=== PATIENT | female | born 1930 | race African-American/Black ===

== ENCOUNTER 2018-01-01 12:47 | Outpatient (CLI) | payer MEDICARE, MEDICAID | END 2018-01-01 12:48 | disposition home or self-care (01) | LOC: BICRAD 12:47 | PROVIDERS: ATTEND Internal Medicine Medical Oncology | DX: C50.919 Malignant neoplasm of unspecified site of unspecified female breast (principal) | CPT/HCPCS: 71046 ==

== ENCOUNTER 2018-01-21 08:40 | Outpatient (CLI) | payer MEDICARE, MEDICAID ==
--- NOTE | 2018-01-21 11:30 | CT ---
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 Left upper quadrant breast cancer. Abnormal weight loss. TECHNIQUE: Abdomen and pelvic CT are performed with IV and oral contrast. Coronal reformatted images are submitt ed for interpretation. FINDINGS: ABDOMEN CT: Linear opacities in the lung bases likely represent areas of scarring and atelectasis. Normal heart size. No pericardial effusion. There are coronary artery calcifications. There is athero sclerosis of the aorta. Symmetric attenuation of psoas muscles. No gastrohepatic, retrocrural, or periportal lymphadenopathy. Gallbladder is unremarkable. Intra and extrahepatic portal vein is patent. Liver, spleen, pancreas, and right/left adrenal glands have appropriate enhancement. Symmetric enhancement of the kidneys. Bilaterally, no obstructive uropathy. Nonobstructing punctate c alcification of left renal pelvis. Right extrarenal pelvis is noted. No mesenteric mass, lymphadenopathy, free air, or free fluid. Gastric mucosa, duodenum, and multiple normal caliber small bowel loops are noted. Ileocecal junction is normal. Normal caliber appendix. Scattered fecal material and contrast in nondistended, nondilate d colon. PELVIC CT: Urinary bladder is unremarkable. No pelvic mass, lymphadenopathy, free air, or free fluid. There are no lytic or blastic lesions in the osseous structures. Vacuum disc phenomenon at multiple l evels is noted. IMPRESSION: No acute abnormality in abdomen or pelvis. POS: [facility]
[2018-01-21] MEDS ORDERED: Iopamidol 370 76% 100 ML VIAL ONE (13:23)
== END 2018-01-21 08:41 | disposition home or self-care (01) ==
LOC: CT 08:40
PROVIDERS: ATTEND Internal Medicine Medical Oncology
DX: C50.412 Malignant neoplasm of upper-outer quadrant of left female breast (principal); R63.4 Abnormal weight loss
CPT/HCPCS: 74177; 82565

== ENCOUNTER 2018-04-22 22:53 | Emergency (ER) | payer MEDICARE, MEDICAID ==
[2018-04-22] MEDS ORDERED: Meclizine HCl 25 MG TAB ONE (23:33)
[2018-04-23 00:03] LABS: #Eosinphils 0.1 thou/uL (0.0-0.7); #Lymphocytes 1.6 thou/uL (1.20-3.40); #Monocytes 0.6 thou/uL (0.11-0.59); #Neutrophils 6.2 thou/uL (1.40-6.50); %Basophils 0.5 % (0.0-1.0); %Eosinophils 1.6 % (0.0-10.0); %Lymphocytes 18.3 % (21.0-51.0); %Monocytes 6.7 % (0.0-10.0); Hemoglobin 11.5 g/dL (12.0-16.0); Mean Corpuscular HGB CONC 31.2 g/dL (32.0-36.0); Mean Corpuscular Hemoglobin 25.3 pg (27.0-31.0); Mean Corpuscular Volume 81.2 fl (81.0-99.0); Mean Platelet Volume 8.9 fL (7.4-10.4); Platelet Count 193 thou/uL (130-400); RBC Distribution Width 12.3 % (11.5-14.5); Red Blood Cell (RBC) Count 4.52 mill/uL (4.20-5.40); White Blood Cell (WBC) Count 8.5 thou/uL (4.8-10.8)
[2018-04-23 00:06] LABS: ALT (SGPT) 32 U/L (8-55); AST (SGOT) 26 U/L (5-34); Alkaline Phosphatase 76 U/L (40-150); Anion Gap 12 mmol/L (10-20); BUN (Urea Nitrogen) 26 mg/dL (9.8-20.1); Bilirubin, Total 0.4 mg/dL (0.2-1.2); Calc. Creatinine Clearance 0 mL/min (70-130); Calcium 10.3 mg/dL (7.8-10.44); Carbon Dioxide 27 mmol/L (23-31); Chloride 106 mmol/L (98-107); Estimated GFR-MDRD 46; Globulin 3.9 g/dL (2.4-3.5); Glucose 155 mg/dL (83-110); Potassium 4.2 mmol/L (3.5-5.1); Protein, Total 7.9 g/dL (6.0-8.3); Sodium 141 mmol/L (136-145)
== END 2018-04-23 01:15 | disposition home or self-care (01) ==
LOC: ERS 22:53
DX: R42 Dizziness and giddiness (principal); E78.5 Hyperlipidemia, unspecified; I10 Essential (primary) hypertension; Z79.899 Other long term (current) drug therapy
CPT/HCPCS: 36415; 80053; 85025; 93005

== ENCOUNTER 2019-11-15 23:13 | Observation (INO) | payer MEDICARE, MEDICAID ==
[2019-11-15 23:47] LABS: #Basophils 0.1 thou/uL (0.0-0.2); #Eosinphils 0.2 thou/uL (0.0-0.7); #Lymphocytes 2.7 thou/uL (1.20-3.40); #Monocytes 0.7 thou/uL (0.11-0.59); #Neutrophils 5.7 thou/uL (1.40-6.50); %Eosinophils 1.6 % (0.0-10.0); %Lymphocytes 29.2 % (21.0-51.0); %Monocytes 7.1 % (0.0-10.0); Hemoglobin 11.9 g/dL (12.0-16.0); Mean Corpuscular HGB CONC 32.8 g/dL (32.0-36.0); Mean Corpuscular Hemoglobin 26.7 pg (27.0-31.0); Mean Corpuscular Volume 81.4 fL (78.0-98.0); Platelet Count 197 thou/uL (130-400); RBC Distribution Width 12.7 % (11.5-14.5); Red Blood Cell (RBC) Count 4.47 mill/uL (4.20-5.40); White Blood Cell (WBC) Count 9.3 thou/uL (4.8-10.8)
--- NOTE | 2019-11-15 23:47 | RAD ---
EXAM: CHEST ONE VIEW HISTORY: Dizziness. Near-syncope. COMPARISON: None FINDINGS: A CT injectable right subclavian Mediport catheter is noted place with tip overlying the distal SVC. There is mild narrowing of the catheter at the level of the anterior first rib and clavicle. The cardiac silhouette and pulmonary vasculature are within normal limits. The lungs are clear. Postsurgi chace changes left shoulder are seen. Degenerative changes are noted in the spine. Vascular calcifications are seen in the thoracic aorta. IMPRESSION: No acute cardiopulmonary process.
[2019-11-16 00:07] LABS: ALT (SGPT) 25 U/L (8-55); AST (SGOT) 26 U/L (5-34); Albumin 4.2 g/dL (3.4-4.8); Alkaline Phosphatase 75 U/L (40-110); Anion Gap 13 mmol/L (10-20); BUN (Urea Nitrogen) 20 mg/dL (9.8-20.1); Bilirubin, Total 0.3 mg/dL (0.2-1.2); Calc. Creatinine Clearance 0 mL/min (70-130); Calcium 9.7 mg/dL (7.8-10.44); Carbon Dioxide 27 mmol/L (23-31); Chloride 107 mmol/L (98-107); Estimated GFR-MDRD 42; Globulin 3.3 g/dL (2.4-3.5); Glucose 135 mg/dL (83-110); Potassium 4.2 mmol/L (3.5-5.1); Protein, Total 7.5 g/dL (6.0-8.3); Sodium 143 mmol/L (136-145)
[2019-11-16 01:23] LABS: Bilirubin Negative (Negative); Blood, Urine Negative (Negative); Clarity Clear (Clear); Glucose, Urine (Dipstick) Normal (Negative); Leukocyte Negative Leu/uL (Negative); Nitrite Negative (Negative); Protein, Urine (Dipstick) Negative (Neg-Trace); Urobilinogen Normal mg/dL (Less than 2)
[2019-11-16] MEDS ORDERED: Ondansetron ODT 4 MG TAB PO PRN (02:27)
[2019-11-16 02:55] LABS: Troponin I 0.052 ng/mL (< 0.028)
[2019-11-16] MEDS ORDERED: Sodium Chloride 0.9% 1,000 ML IV SCH ×2 (03:00→11:15)
--- NOTE | 2019-11-16 04:02 | HP ---
CHIEF COMPLAINT: Near syncope. HISTORY OF PRESENT ILLNESS: This patient is an 89-year-old female, who presented via the emergency department. The patient was at home and says she felt like she needed to have a bowel movement, but could not. She felt nausea, but could not vomit either. Subsequently became very lightheaded and according to her daughter became near syncopal and almost fell out of her chair, although the daughter was there to catch her and ensure that she did not fall. It is not believed that the patient never actually lost consciousness. Since she got to the emergency department she has had a good bowel movement and says she feels completely fine, back to her baseline. She denied any chest pain, shortness of breath, palpitations, fevers, or chills. REVIEW OF SYSTEMS: She has had normal sleep, appetite. No significant musculoskeletal symptoms. All other systems reviewed. All pertinent positives and negatives noted in the history of present illness. 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 PAST SURGICAL HISTORY: Both knees replaced, bilateral shoulder surgery, carpal tunnel release, left mastectomy, hysterectomy. FAMILY HISTORY: Not known other than her mother had cataract. SOCIAL HISTORY: The patient is a nonsmoker, nondrinker, and nondrug user. She is . She is full code and her daughter would be her surrogate decision maker should that become necessary. ALLERGIES: NONE. CURRENT MEDICATIONS: 1. Amlodipine 5 mg p.o. daily. 2. Atorvastatin 20 mg p.o. at bedtime. 3. Hydrochlorothiazide 25 mg daily. 4. Myrbetriq 50 mg p.o. daily. 5. Valsartan 320 mg p.o. daily. PHYSICAL EXAMINATION: VITAL SIGNS: BP 142/78, pulse 84, respirations 16, O2 saturation 100% on room air. GENERAL APPEARANCE: Age-appropriate female. She is in no distress. She is awake, alert, oriented, pleasant, cooperative. HEENT: There is opacification of the right iris and pupil with noted identifiable pupil. Left pupil is irregular, not reactive. She has no OP lesions. Moist oral mucosa. NECK: Supple and symmetric. HEART: Regular rate and rhythm . There is a 2/6 murmur heard at the apex. LUNGS: Clear to auscultation bilaterally with good chest wall expansion and air exchange. ABDOMEN: Soft, nontender, and nondistended. Positive bowel sounds. No masses. No organomegaly. EXTREMITIES: No cyanosis, clubbing, or edema. PSYCH: Normal affect and behavior. NEUROLOGICAL: Cranial nerves are intact. She appears to be cognitively intact. No focal deficits. LABORATORY DATA: White count 9.3, hemoglobin 11.9, platelets 197. Sodium 143, potassium 4.2, chloride 107, CO2 27, BUN 20, creatinine is 1.43, glucose 135, AST 26, ALT 25, troponin 0.076, albumin 4.2. Urinalysis normal. Chest x-ray, no acute cardiopulmonary processes. IMPRESSION AND PLAN: 1. Near syncopal episode in the setting of needing to have a bowel movement and subsequent nausea. I strongly suspect the patient actually had a vasovagal episode with near syncope. However, she does have a heart murmur and some renal issues. We will keep in observation on telemetry. Check echo, carotid Dopplers. 2. Renal insufficiency. Based on prior labs, she appears to be just very slightly below her baseline. Her last GFR was in March 2018 was 46 and she is currently at 42. We will need to continue to monitor that. 3. Indeterminate troponins. Given her age and renal functions, may be normal. However, in the setting of syncope, we will continue to trend out. 4. Hypertension. Continue with her usual home medications. 5. Hyperlipidemia. Continue with her home regimen. Job ID: [id number]
[2019-11-16 06:03] LABS: Troponin I 0.058 ng/mL (< 0.028)
--- NOTE | 2019-11-16 08:16 | ULT ---
Carotid duplex sonogram HISTORY: Syncope. Vascular disease. FINDINGS: Right: Moderate plaque. Color and spectral Doppler evaluation, peak systolic velocity of 78 cm/s, and IC to CC ratio 1.3 suggest no hemodynamically significant stenosis within the extracranial right ICA. Antegrade flow within the vertebral artery. Left: Scattered plaque. Color and spectral Doppler evaluation, peak systolic velocity of 93 cm and IC to CC ratio of 1.2 suggest no hemodynamically significant stenosis within the extracranial left ICA. Antegrade flow within the vertebral artery. IMPRESSION: Atherosclerosis. No sonographic evidence of significant extracranial ICA stenosis.
[2019-11-16] MEDS ORDERED: Hydrochlorothiazide 25 MG TAB PO SCH (09:00)
[2019-11-16] MEDS ORDERED: Valsartan 80 MG TAB PO SCH ×2 (09:00→11:30)
[2019-11-16] MEDS: Amlodipine 5 MG TAB PO SCH (09:14)
[2019-11-16 15:49] LABS: Anion Gap 12 mmol/L (10-20); BUN (Urea Nitrogen) 15 mg/dL (9.8-20.1); Calc. Creatinine Clearance 34 mL/min (70-130); Calcium 9.4 mg/dL (7.8-10.44); Carbon Dioxide 27 mmol/L (23-31); Chloride 109 mmol/L (98-107); Estimated GFR-MDRD 56; Glucose 90 mg/dL (83-110); Potassium 3.8 mmol/L (3.5-5.1); Sodium 144 mmol/L (136-145)
--- NOTE | 2019-11-16 18:35 | PDOC.HOSPP ---
- Subjective Encounter Date: 11/16/19 Encounter Time: 15:30 Subjective: The patient has no complaints, no dizziness, shortness of breath or chest pain. Patient received all of her home meds this morning but also received IV fluids. Repeat BMP shows creatinine 1.11 Per family members, patient wasn't very coherent and was complaining of dizziness. She ambulated with PT with a walker, per family she typically uses a cane. - Objective Vital Signs & Weight: Vital Signs (12 hours) Temp Pulse Resp BP BP BP Pulse Ox 11/16/19 17:29 79 129/62 11/16/19 15:49 98.0 F 80 16 122/56 L 100 11/16/19 12:10 97.7 F 89 16 118/58 L 100 11/16/19 08:00 97.8 F 72 18 147/63 H 159/72 H 132/63 100 Weight Weight 137 lb 14.4 oz I&O: 11/15/19 11/16/19 11/17/19 06:59 06:59 06:59 Intake Total 240 2380 Output Total 1150 Balance 240 1230 Result Diagrams: 11/15/19 23:36 11/16/19 15:26 Hospitalist ROS - Review of Systems Constitutional: denies: fever, chills - Medication Medications: Active Medications Generic Name Dose Route Start Last Admin Trade Name Elif PRN Reason Stop Dose Admin Amlodipine Besylate 5 mg 11/16/19 09:00 11/16/19 09:14 Norvasc PO 5 mg DAILY LISSA Administration Mirabegron 50 mg 11/16/19 09:00 11/16/19 09:14 Myrbetriq Er PO 50 mg DAILY LISSA Administration - Exam General Appearance: NAD, awake alert Eye: PERRL, anicteric sclera ENT: normocephalic atraumatic, no oropharyngeal lesions Neck: supple, symmetric, no JVD Heart: RRR, no murmur, no gallops, no rubs Respiratory: CTAB, no wheezes, no rales, no ronchi Gastrointestinal: soft, non-tender, non-distended Extremities: no cyanosis, no clubbing, no edema Hosp A/P - Plan ECHO: EF 60-65%, diastolic dysfunction, mild MR, mild TR This is an 89 year old male with past medical history of hypertension, diastolic heart failure who presented with near syncope #Near syncope #Possible MICHAEL #Diastolic dysfunction - creatinine 1.44, improved to 1.11 with IV fluids - orthostatics negative. Patient received IV fluids and BP meds this morning, therefore difficult to assess what BP meds are really necessary - will monitor off IV fluids overnight, continue amlodipine, hold HCTZ and valsartan and resume possibly at lower dose if needed - ECHO shows diastolic dysfunction, mild MR, mild TR - PT evaluation since patient at baseline uses a cane and not a walker Urinary incontinence - myrbitreq Hyperlipidemia - atorvastatin Disposition: d/c in am Code status: full code
[2019-11-16] MEDS ORDERED: Atorvastatin Calcium 20 MG TAB PO SCH (21:00)
[2019-11-16] MEDS ORDERED: Latanoprost 0.005% Ophth Soln 2.5 ml Bottle L EYE SCH (21:00)
[2019-11-16] MEDS ORDERED: Latanoprost 0.005% Ophth Soln 2.5 ml Bottle EA EYE SCH (21:30)
[2019-11-16] MEDS: Artificial Tear Sol 15 ML BOT EA EYE SCH (22:20)
[2019-11-16] MEDS: Polyethylene Glycol OPTH DROP 15 ML BOT R EYE SCH (22:24)
[2019-11-17] MEDS ORDERED: Calcium Carbonate + Vit D 1 TAB PO SCH (09:00)
[2019-11-17] MEDS ORDERED: Amlodipine 5 MG TAB PO SCH (09:00)
[2019-11-17] MEDS ORDERED: Aspirin 81 mg Enteric Coated Tablet PO SCH (09:00)
[2019-11-17] MEDS ORDERED: Ascorbic Acid 500 mg Chewable Tablet PO SCH (09:00)
[2019-11-17] MEDS ORDERED: Vitamin E 400 UNITS CAP PO SCH (09:00)
[2019-11-17] MEDS ORDERED: Valsartan 80 MG TAB PO SCH (09:00)
[2019-11-17] MEDS ORDERED: Atorvastatin Calcium 20 MG TAB PO SCH (09:00)
[2019-11-17] MEDS: Polyethylene Glycol OPTH DROP 15 ML BOT R EYE SCH (09:12)
[2019-11-17] MEDS: Artificial Tear Sol 15 ML BOT EA EYE SCH (09:16)
[2019-11-17] MEDS: Amlodipine 5 MG TAB PO SCH (09:25)
[2019-11-17 14:42] VITALS: BMI 20.7
[2019-11-17 15:44] VITALS: BP 140/67; TEMP 98.1
--- NOTE | 2019-11-18 10:50 | DIS ---
DATE OF ADMISSION: 11/16/2019 DATE OF DISCHARGE: 11/17/2019 ADMITTING DIAGNOSES: 1. Near syncopal episode, possibly vasovagal. 2. Renal insufficiency. 3. Indeterminate troponin I, rule out myocardial infarction. 4. Hypertension. 5. Hyperlipidemia. FINAL DIAGNOSES: 1. Near syncope. No evidence of acute myocardial infarction. No evidence of any cardiac arrhythmia. Possible it is vasovagal. 2. Indeterminate troponin I. No evidence of acute myocardial infarction. 3. Hypertension. 4. Hyperlipidemia. BRIEF SUMMARY OF HOSPITAL COURSE: Ms. Kelley is an 89-year-old female, admitted because of near syncopal episode. The patient is admitted because of risk factors, rule out cardiac HI, rule out cardiac arrhythmia. Cardiac monitoring did not show any arrhythmia. Troponin I did not suggest an acute HI. Carotid Doppler study was done and there was no evidence of hemodynamically significant stenosis. Echocardiogram showed normal LV function with ejection fraction of 65, showed diastolic dysfunction. The patient has been ambulating in the hospital with her walker without feeling any dizzy or syncopal episode. Did not have any chest pain or shortness of breath. In view of improvement, the patient is being discharged home. At the time of discharge, she was stable. Her vital signs stable. Lungs clear. Heart sounds regular. Abdomen is soft. No tenderness. Bowel sounds present. DISCHARGE MEDICATIONS: 1. Vitamin C 500 mg daily. 2. Vitamin E 400 units daily. 3. Stool softener b.i.d. 4. Docusate sodium. 5. Tylenol p.r.n. 6. Aspirin 81 mg daily. 7. Latanoprost eyedrops q.p.m. 8. Her hydrochlorothiazide was discontinued because of low blood pressure. 9. Losartan dose was decreased to 50 mg daily. 10. Amlodipine 5 mg daily. 11. Myrbetriq 50 mg daily. 12. Atorvastatin 20 mg daily. FOLLOWUP: The patient will come for followup in 2 weeks. Job ID: [id number]
== END 2019-11-17 18:46 | disposition home or self-care (01) ==
LOC: ERS 23:13 → 2SW 11-16 01:10
PROVIDERS: ADMIT Internal Medicine; ATTEND Internal Medicine
DX: R51 Headache (principal); N28.9 Disorder of kidney and ureter, unspecified; I10 Essential (primary) hypertension; E78.5 Hyperlipidemia, unspecified; R32 Unspecified urinary incontinence; H54.61 Unqualified visual loss, right eye, normal vision left eye; Z79.82 Long term (current) use of aspirin; Z79.899 Other long term (current) drug therapy
CPT/HCPCS: 36415; 51701; 71045; 80048; 80053; 81003; 82553; 84484; 85025; 93005; 93306; 93880; 96360; 96361; A4353; G0378

== ENCOUNTER 2020-04-24 10:42 | Outpatient (CLI) | payer MEDICARE, MEDICAID | END 2020-04-24 10:43 | disposition home or self-care (01) | LOC: LABBT 10:42 | PROVIDERS: ATTEND Orthopaedic Surgery | DX: Z01.810 Encounter for preprocedural cardiovascular examination (principal); S62.306A Unspecified fracture of fifth metacarpal bone, right hand, initial encounter for closed fracture | CPT/HCPCS: 93005; 93010 ==

== ENCOUNTER 2020-04-27 11:06 | Day surgery (SDC) | payer MEDICARE, MEDICAID ==
[2020-04-24 10:57] VITALS: BMI 21.7
[2020-04-27 11:55] LABS: #Basophils 0.1 thou/uL (0.0-0.2); #Eosinphils 0.2 thou/uL (0.0-0.7); #Lymphocytes 2.9 thou/uL (1.20-3.40); #Monocytes 0.7 thou/uL (0.11-0.59); #Neutrophils 4.8 thou/uL (1.40-6.50); %Eosinophils 2.1 % (0.0-10.0); %Lymphocytes 33.6 % (21.0-51.0); %Monocytes 7.6 % (0.0-10.0); %Neutrophils 55.7 % (42.0-75.0); Hemoglobin 11.7 g/dL (12.0-16.0); Mean Corpuscular HGB CONC 33.7 g/dL (32.0-36.0); Mean Corpuscular Hemoglobin 27.4 pg (27.0-31.0); Mean Corpuscular Volume 81.2 fL (78.0-98.0); Mean Platelet Volume 9.1 fL (7.4-10.4); Platelet Count 191 thou/uL (130-400); Red Blood Cell (RBC) Count 4.28 mill/uL (4.20-5.40); White Blood Cell (WBC) Count 8.6 thou/uL (4.8-10.8)
[2020-04-27] MEDS ORDERED: Midazolam HCl 2 mg/2 ml Vial ONE (13:07)
[2020-04-27] MEDS ORDERED: EPINEPHrine 1 MG/ML AMP ONE (13:07)
[2020-04-27] MEDS ORDERED: Fentanyl 100 MCG/2 ML VIAL ONE (13:07)
[2020-04-27] MEDS ORDERED: Bupivacaine HCl 0.5%/Epinephrine 1:200,000/PF 30 ml Vial ONE (13:44)
[2020-04-27] MEDS ORDERED: Bupivacaine PF 0.5% 30 ML VIAL ONE (14:51)
[2020-04-27] MEDS ORDERED: Bacitracin Zinc Ointment 30 gm TUBE ONE (14:51)
[2020-04-27] MEDS ORDERED: Famotidine/PF 20 mg/2ml Vial ONE (14:52)
--- NOTE | 2020-04-27 17:06 | RAD ---
Exam: XR Hand Rt 2 View HISTORY: ORIF right fifth metacarpal. Metacarpal fracture. COMPARISON: 04/23/2020 FINDINGS/IMPRESSION: Postoperative changes related to internal fixation of the angulated and displaced fracture of the pro ximal right fifth metacarpal is noted with a volar plate and screws as well as 2 pins transfixing the fracture. Improved alignment of the fracture fragments is present after internal fixation. Correl ation with intraoperative findings is recommended.
--- NOTE | 2020-04-30 12:50 | OP ---
DATE OF PROCEDURE: 04/27/2020 PREOPERATIVE DIAGNOSIS: Three-part complex base to the midshaft proximal metacarpal fracture, small finger. POSTOPERATIVE DIAGNOSIS: Three-part complex base to the midshaft proximal metacarpal fracture, small finger. TOURNIQUET TIME: 35 minutes. ESTIMATED BLOOD LOSS: 10 mL. PROCEDURE PERFORMED: Open reduction and internal fixation of small finger metacarpal base fracture, with three-part split in the sagittal plane using a combination of a [employer] variable angle handset 1.5 mm T-plate with screws and two wires. FINDINGS: Intra-articular fragment with comminution as well. DESCRIPTION OF PROCEDURE: After successful general endotracheal anesthesia, the limb was prepped and draped. Time-out done appropriately. We then gave her an augmented block with a 20 mL of 0.5% Marcaine proximal to the incision at the base of the small finger metacarpal and include the superficial ulnar nerve. We exsanguinated the limb. We inflated the tourniquet to 250 mmHg pressure. We then carried the incision through skin and subcutaneous tissue, and protecting all branches superficial ulnar nerve. Then, the extensor mechanism. We then dissected down to the fracture, where we found it was comminuted, malrotated and in three-parts. First, reduced the intra-articular fragment and then held that with a . We then did a preliminary reduction of the primary two fragments, held them with a K-wire from proximal to distal. We placed a T-plate, 1.5, juxta-articular with the three teeth being all proximal to the primary fragment line and the remainder portion of the shaft anatomically aligned. There was a small butterfly fragment of 6 mm wide x 7 mm long, they keyed into the construct well when this fracture was reduced. We then used a standard drill measure and screw technique to secure the screws beginning from proximal to distal. There is no malrotation. We then released the tourniquet, a final radiographs were made, and then we cut the wires x2, removed one of the transverse wires at the joint line below the skin level with a small substation wireman. We closed the periosteum with an interrupted 2-0 Vicryl, closed the subcutaneous tissue with a 4-0 Monocryl and then, 4-0 nylon was used in interrupted simple pattern to close the epidermis. She left the operating room with a 5-inch splint out to the level of the middle of the proximal phalanx small ring finger with other digits free. C-arm was used for this case. Job ID: [id number]
== END 2020-04-27 18:50 | disposition home or self-care (01) ==
LOC: SDC 11:06
PROVIDERS: ATTEND Orthopaedic Surgery Hand Surgery
PROC: 0PSP04Z Reposition Right Metacarpal with Internal Fixation Device, Open Approach (ICD-10-PCS; principal; 2020-04-27)
DX: S62.316A Displaced fracture of base of fifth metacarpal bone, right hand, initial encounter for closed fracture (principal); S62.326A Displaced fracture of shaft of fifth metacarpal bone, right hand, initial encounter for closed fracture; I10 Essential (primary) hypertension; E78.00 Pure hypercholesterolemia, unspecified; Z79.899 Other long term (current) drug therapy; Z91.048 Other nonmedicinal substance allergy status
CPT/HCPCS: 36415; 76000; 85025; J0171; J0670; J0690; J2250; J3010; S0020; S0028